=== PATIENT | female | born 1950 | race Caucasian/White ===

== ENCOUNTER 2018-12-11 11:52 | Emergency (ER) | payer MEDICARE, BC ==
[2018-12-11 12:05] VITALS: BP 157/74
--- NOTE | 2018-12-11 12:37 | UC ---
Dental HPI - HPI Summary HPI Summary: Pt presents with c/o right right lower jaw pain and swelling that has worsened over the last 2 days. Pt has concern for dental abscess. - History of Current Complaint Chief Complaint: UCDentalProblem Stated Complaint: JAW COMPLAINT Time Seen by Provider: 12/11/18 12:08 Hx Obtained From: Patient ?: No Onset/Duration: Gradual Onset, Lasting Days, Still Present, Worse Since - onset Severity: Moderate Pain Intensity: 0 Aggravating Factor(s): Chewing Related History: Swelling - Allergies/Home Medications Allergies/Adverse Reactions: Allergies Allergy/AdvReac Type Severity Reaction Status Date / Time cephalexin [From Keflex] Allergy See Comment Verified 12/11/18 12:02 PMH/Surg Hx/FS Hx/Imm Hx Previously Healthy: Yes - Surgical History Surgical History: None - Family History Known Family History: Positive: Unknown - Social History Occupation: Retired Lives: With Family Alcohol Use: Occasionally Substance Use Type: None Smoking Status (MU): Never Smoked Tobacco Have You Smoked in the Last Year: No - Immunization History Most Recent Tetanus Shot: unknown Vaccination Up to Date: No Review of Systems All Other Systems Reviewed And Are Negative: Yes Constitutional: Positive: Negative Skin: Positive: Negative Eyes: Positive: Negative ENT: Positive: Dental Pain Respiratory: Positive: Negative Cardiovascular: Positive: Negative Gastrointestinal: Positive: Negative Genitourinary: Positive: Negative Motor: Positive: Negative Neurovascular: Positive: Negative Musculoskeletal: Positive: Negative Neurological: Positive: Negative Psychological: Positive: Negative Is Patient Immunocompromised?: No Physical Exam Triage Information Reviewed: Yes Appearance: Well-Appearing Vital Signs: Initial Vital Signs Temp 97.5 F 12/11/18 12:03 Pulse 81 12/11/18 12:03 Resp 16 12/11/18 12:03 BP 157/74 12/11/18 12:03 Pulse Ox 100 12/11/18 12:03 Vital Signs Reviewed: Yes Eye Exam: Normal ENT Exam: Normal Dental: Positive: Abscess @ - right lower jaw at ~ #30 Dental Complaint Course/Dx - Differential Dx/Diagnosis Differential Diagnosis/Dx: Dental Abscess, Gingivitis Provider Diagnosis: Dental abscess Discharge - Sign-Out/Discharge Documenting (check all that apply): Patient Departure All imaging exams completed and their final reports reviewed: No Studies - Discharge Plan Condition: Stable Disposition: HOME Prescriptions: Amoxicillin/Clavulanate TAB* [Augmentin TAB 500 mg*] 500 mg PO Q12H #20 tab predniSONE TAB* [Deltasone 10 MG TAB*] 30 mg PO DAILY #12 tab Patient Education Materials: Dental Abscess (ED) Referrals: Mack Allen MD [Primary Care Provider] - If Needed Additional Instructions: Please follow up with your dental care provider as soon as possible - Billing Disposition and Condition Condition: STABLE Disposition: Home
== END 2018-12-11 12:46 | disposition home or self-care (01) ==
LOC: UCCORT 11:52
DX: K04.7 Periapical abscess without sinus (principal)
CPT/HCPCS: 99212; G0463